=== PATIENT | male | born 1995 | race Caucasian/White ===

== ENCOUNTER 2022-11-06 06:11 | Emergency (ER) | payer MEDICAID, SELFPAY ==
[2022-11-06 06:18] VITALS: BP 134/84; PULSE 84; RESP 14; TEMP 36.7; O2SAT 97; BMI 24.4
--- NOTE | 2022-11-06 06:40 | ED_ITS ---
HPI - Dental/Oral General: Chief complaint: Dental/Oral Stated complaint: abcess pain Time Seen by Provider: 11/06/22 06:38 Source: patient Mode of arrival: ambulatory History of Present Illness: 26-year-old male presents emergency room complaining of tooth pain he has right mandibular chest pain and swelling tenderness he says been going on for 2 weeks. He has not seen a dentist. No fever sweats chills no difficulty speaking or swallowing. MD Complaint: tooth pain Teeth map: 1. Onset (ago): week(s) (2) Duration: constant Severity: moderate Relieving factors: nothing Exacerbating factors: nothing Context: history of dental caries Associated symptoms: Reports gum swelling; Denies ear or mastoid pain, fever(s), odynophagia, sore throat or tongue swelling Treatment prior to arrival: oral analgesic Review of Systems Const: Denies: fever(s) ENMT: Denies: odynophagia or ear or mastoid pain Card: Denies: chest pain, edema, dyspnea on exertion or orthopnea Resp: Denies: dyspnea GI: Denies: abdominal pain, nausea or vomiting All/Imm: Denies: tongue swelling PFSH ED PFSH: Family History Mother Stroke Hypertension Father , lung cancer Cancer Hypertension Social History Smoking and tobacco status: current every day smoker Quit status (tobacco): not considering quitting Second hand smoke exposure: Yes Alcohol intake: current Desire information about alcohol rehabilitation?: No Last alcohol use date: 02/26/21 Adopted: No Lives independently: Yes Housing: House Marital status: Single Highest education level completed: High School Graduate service: No Current occupational status: employed Current occupation: [email or web address] Current occupational exposures/hazards: Yes Pets and animals: Yes Sexually active: Yes Current gender identity: Male Special ravi needs: No Agree to transfusion: Yes Physical Exam Const: COMMON NORMALS: no acute distress GENERAL APPEARANCE: cooperative and comfortable ORIENTATION/CONSCIOUSNESS: Yes awake, Yes oriented to person, Yes oriented to place and Yes oriented to time HENMT: COMMON NORMALS: normocephalic, atraumatic and hearing grossly normal bilaterally HEAD & SCALP: normocephalic and atraumatic TEETH & GINGIVA IMAGES: 1. OTHER: Multiple dental caries moderate swelling of the gumline no evidence of abscess visualized. Neck/C-Spine: GENERAL: Yes normal visual inspection, Yes trachea midline, No anterior neck swelling and No lymphadenopathy CERVICAL SPINE: Yes cervical ROM normal OTHER: No submandibular fullness or swelling Resp: COMMON NORMALS: normal respiratory effort, No retractions, No use of accessory muscles and clear to auscultation bilaterally AUSCULTATION: clear to auscultation bilaterally Cardio: COMMON NORMALS: regular rate, regular rhythm and No murmurs present (Cardio) RATE: regular rate RHYTHM: regular rhythm Extremity: COMMON NORMALS: normal to inspection, capillary refill normal, no clubbing, cyanosis or edema, no calf tenderness and no pedal edema Neuro: SENSORIUM/ORIENTATION: Yes oriented to person, Yes oriented to place and Yes oriented to time Skin: COMMON NORMALS: no rashes or lesions noted GENERAL SKIN EXAM: no rashes or lesions noted Course Vital Signs: Vital signs: Vital Signs Temperature 98.0 F 11/06/22 06:18 Pulse Rate 84 11/06/22 06:18 Respiratory Rate 14 11/06/22 06:18 Blood Pressure 134/84 11/06/22 06:18 Pulse Oximetry 97 11/06/22 06:18 Oxygen Delivery Me thod Nasal Cannula 11/06/22 06:18 MDM - Dental/Oral Medical Decision Making No intervene able abscess identified at this time very poor dentition start oral antibiotics pain medication strongly encourage patient to follow-up with dentist for definitive care Medical Records I reviewed the patient's medical records. Lab Data I reviewed the patient's lab results. Discharge Plan Discharge Patient Disposition: Home Clinical Impression: Dental caries Condition: Stable Prescriptions: New Augmentin 500-125 mg tablet 1 tab PO TID Qty: 30 0RF tramadol 50 mg tablet 50 mg PO Q6H PRN (Reason: pain) Qty: 10 0RF No Action amoxicillin-pot clavulanate [Augmentin] 875-125 mg tablet 1 tab PO BID 10 Days Qty: 20 0RF albuterol sulfate [ProAir HFA] 90 mcg/actuation HFA aerosol inhaler 2 puff inhalation Q6H PRN (Reason: shortness of breath or wheezing) Qty: 8.5 0RF prednisone 20 mg tablet 40 mg PO DAILY 5 Days Qty: 10 0RF Flovent Diskus 100 mcg/actuation blister with device 1 inh inhalation BID Qty: 60 0RF Discharge Orders: Discharge ED (Routine); Ordered 11/06/22 Ordered By: Richard Jasso Discharge Diet: Soft Mechanical Discharge Activity: Resume usual activity Patient Instructions: Dental Caries (Cavities), Dental Abscess (ED), Opioid Safety, Pain Management Activity Restrictions/Additional Instructions: You are seen today for dental caries. There is no abscess that was identifiable and drainable in the emergency room. You were started on antibiotics and given some pain medications. Franky. She will follow-up with a dentist as soon as you are able as these treatments will not be definitive. Coding Level of Care Code ED Blind Eyeletter for Muriel Fwd Exam Detailed
== END 2022-11-06 06:54 | disposition home or self-care (01) ==
PROVIDERS: Emergency Provider Family Medicine
DX: K02.9 Dental caries, unspecified (principal); F17.210 Nicotine dependence, cigarettes, uncomplicated
CPT/HCPCS: 99283

== ENCOUNTER → 2023-12-04 12:43 | Outpatient (BNVA) | payer SELFPAY | PROVIDERS: Visit Provider Nurse Practitioner | DX: R05.8 Other specified cough (principal) | CPT/HCPCS: 87400 ==